=== PATIENT | female | born 1955 | race Caucasian/White ===

== ENCOUNTER 2017-06-04 14:52 | Inpatient (IN) ==
[2017-06-04] MEDS ORDERED: 0.9 % Sodium Chloride 1,000 ML IVC ONE ×3 (15:44→21:51)
--- NOTE | 2017-06-04 15:46 | Emergency Department Note ---
Disposition Clinical Impression: Acute kidney injury, Severe dehydration Disposition: Admitted As Inpatient Condition: Fair Referrals: NO,PCP [Primary Care Provider] - Forms: ED Satisfaction Letter Time of Disposition: 18:12 General Adult HPI - General Chief complaint: ED Recheck/Abnormal Lab/Rx Stated complaint: Abnormal labs Time Seen by Provider: 06/04/17 15:04 Source: patient, EMS Mode of arrival: EMS Limitations: no limitations Nursing Notes Reviewed: Yes Vital Signs Reviewed: Yes - History of Present Illness HPI Narrative: Patient had recent abdominal surgery. Has a colostomy and an open wound in the lower abdomen. She is at a rehabilitation facility. They have done lab work over the past handful of days and have seen her creatinine elevated significantly. Today it was double what it was last time he checked it. This is reportedly the reason the patient was sent here. Patient herself is not understanding why they sent her here. She complains of difficulty urinating. Pt Subjective Complaint: Patient states she just does not feel well. Onset (ago): day(s) Pain Severity: severe Pain Scale: 9 Quality: sharp Consistency: intermittent Improves with: nothing Worsens with: nothing Associated symptoms: Denies: cough, fever/chills - Related Data Allergies Allergy/AdvReac Type Severity Reaction Status Date / Time No Known Allergies Allergy Verified 06/04/17 16:22 All systems ED: reviewed and negative except as stated. Constitutional: Denies: fever, chills ENT ED: Denies: ear pain, throat pain, congestion Cardiovascular: Denies: chest pain, palpitations Respiratory: Denies: cough, dyspnea Gastrointestinal: Reports: abdominal pain, nausea. Denies: vomiting, diarrhea Genitourinary: Reports: other (Patient states she has not been able to urinate for 2 days) Integumentary: Denies: rash Past Medical History - Past Medical History Attestation: Yes The following information was validated with the patient. Source: patient, old records reviewed, nursing notes reviewed Medical history: Reports: cancer, diabetes, hypertension Psychiatric history: Reports: no psych history - Social History Smoking Status: Former smoker Smokeless Tobacco Status: No Alcohol use: Reports: none Drug use: Reports: none Physical Exam - General Limitations: no limitations General appearance: alert, in no apparent distress - Head Head exam: atraumatic, normocephalic, normal inspection - Eye Eye exam: Present: normal appearance, PERRL, EOMI. Absent: scleral icterus, conjunctival injection - ENT ENT exam: normal exam, normal oropharynx, mucous membranes dry, normal external ear exam - Neck Neck exam: Present: normal inspection, full ROM. Absent: tenderness, meningismus - Chest Chest inspection: Present: normal inspection, symmetric chest wall rise. Absent : tenderness - Respiratory Respiratory exam: Present: normal lung sounds bilaterally. Absent: respiratory distress, wheezes - Cardiovascular Cardiovascular exam: Present: regular rate, normal rhythm, normal heart sounds - Abdominal Exam Abdominal exam: Present: soft, other (Patient has a colostomy in the right lower quadrant and an open wound incision that is packed in the left lower quadrant. She claims of discomfort to palpation to the suprapubic area.) - Extremities Exam Extremities exam: Present: normal inspection. Absent: tenderness - Neurological Exam Neurological exam: Present: alert - Skin Skin exam: Present: warm, dry Course Course Narrative: Patient was sent in because of abnormal lab work. We see that the creatinine has been going up significantly over the past sample of days. With the story of the patient stating that she is not able to pass her urine, I am to put a Malagon in to rule out postobstructive cause of renal failure. We will get a workup going to evaluate other etiologies. We will start some IV fluids. I suspect the patient will need to be admitted but will need the rest of the labs to determine the full extent of her diagnosis. - Reevaluation(s) Reevaluation #1: Patient's labs show significant elevated creatinine but no acidosis and no significant elevation of the potassium. We put a Malagon in her and got no urine output from that. I think this is all dehydration. CAT scan of the abdomen was unremarkable except for expected postoperative changes. I have given her fluids and I think she needs much more fluids. She is to be admitted to the hospital. I have already spoken with the hospitalist who has accepted her for admission. Time: 18:11 - Consultations Consultation #1: Dr. Shaver, hospitalist - I discussed the case with the hospitalist. He is accepted patient for admission. No further orders given. Time: 18:10 Vital Signs Temperature 98.1 F 06/04/17 14:55 Pulse Rate 78 06/04/17 14:55 Respiratory Rate 16 06/04/17 14:55 Blood Pressure 95/55 06/04/17 14:55 O2 Sat by Pulse Oximetry 94 06/04/17 14:55 Temperature 98.1 F 06/04/17 14:55 Pulse Rate 82 06/04/17 17:22 Respiratory Rate 16 06/04/17 17:22 Blood Pressure 111/77 06/04/17 17:22 O2 Sat by Pulse Oximetry 97 06/04/17 17:22 Oxygen Delivery Oxygen Delivery Room Air Medical Decision Making - Lab Data Lab results reviewed: Yes I reviewed the patient's lab results. Result diagrams: 06/04/17 16:07 06/04/17 16:07 Lab Results 06/04/17 06/04/17 06/04/17 Range/Units 16:07 16:07 16:07 WBC 10.1 (4.3-11.1) K/mcL RBC 3.55 L (3.82-4.97) M/mcL Hgb 9.8 L (11.5-15.4) g/dL Hct 29.8 L (35.3-44.9) % MCV 83.9 (83.0-100.0) fL MCH 27.6 L (28.0-33.3) pg MCHC 32.9 (31.6-35.5) g/dL RDW 12.8 (11.5-14.5) % Plt Count 439 H (140-400) K/mcL MPV 10.5 (9.4-12.4) fL Immature Gran % 1.3 (0-4) % Seg Neutrophils % 74.8 % Lymphocytes % 10.7 % Monocytes % 9.1 % Eosinophils % 3.6 % Basophils % 0.5 % Neutrophils # 7.6 (1.6-8.9) K/mcL Lymphocytes # 1.1 (0.6-4.6) K/mcL Monocytes # 0.9 (0.0-1.3) K/mcL Eosinophils # 0.4 (0.0-0.6) K/mcL Basophils # 0.1 (0.0-0.2) K/mcL Sodium 129 L (136-145) mEq/L Potassium 5.5 H (3.5-4.5) mEq/L Chloride 91 L (98-109) mEq/L Carbon Dioxide 23 (19-29) mEq/L BUN 54 H (7-20) mg/dL Creatinine 7.09 H (0.57-1.11) mg/dL Est GFR ( Amer) 7 L (> 60) Est GFR (Non-Af Amer) 6 L (> 60) BUN/Creatinine Ratio 8 (6-26) Glucose 100 H (70-99) mg/dL Calculated Osmolality 283 (280-300) Lactic Acid 1.5 (0.5-2.2) mmol/L Calcium 10.1 (8.6-10.8) mg/dL Total Bilirubin 0.2 (0.2-1.2) mg/dL Direct Bilirubin 0.1 (0.0-0.5) mg/dL Indirect Bilirubin 0.1 (0.0-1.2) mg/dL AST 16 (5-34) Units/L ALT 10 (0-55) Units/L Alkaline Phosphatase 79 (38-126) Units/L Serum Total Protein 8.4 H (6.0-8.3) g/dL Albumin 3.0 L (3.5-5.0) g/dL Globulin 5.4 H (2.4-3.5) g/dL Albumin/Globulin Ratio 0.6 L (1.1-2.2) Urine Color (Yellow) Urine Clarity (Clear) Urine pH (5.0-8.0) pH Units Ur Specific [place] (1.010-1.025) Urine Protein (Neg-Trace) mg/dL Urine Glucose (UA) (Normal) mg/dL Urine Ketones (Negative) mg/dL Urine Blood (Negative) Urine Nitrite (Negative) Urine Bilirubin (Negative) Urine Urobilinogen (Normal) mg/dL Ur Leukocyte Esterase (Negative) Urine Microscopic RBC (0-3) per hpf Urine Microscopic WBC (0-3) per hpf Ur Squamous Epith Cells (None-Few) per lpf Urine Bacteria (None-Few) per hpf Hyaline Casts (None-Few) per lpf Ur Culture Indicated? (NO) 06/04/17 Range/Units 16:45 WBC (4.3-11.1) K/mcL RBC (3.82-4.97) M/mcL Hgb (11.5-15.4) g/dL Hct (35.3-44.9) % MCV (83.0-100.0) fL MCH (28.0-33.3) pg MCHC (31.6-35.5) g/dL RDW (11.5-14.5) % Plt Count (140-400) K/mcL MPV (9.4-12.4) fL Immature Gran % (0-4) % Seg Neutrophils % % Lymphocytes % % Monocytes % % Eosinophils % % Basophils % % Neutrophils # (1.6-8.9) K/mcL Lymphocytes # (0.6-4.6) K/mcL Monocytes # (0.0-1.3) K/mcL Eosinophils # (0.0-0.6) K/mcL Basophils # (0.0-0.2) K/mcL Sodium (136-145) mEq/L Potassium (3.5-4.5) mEq/L Chloride (98-109) mEq/L Carbon Dioxide (19-29) mEq/L BUN (7-20) mg/dL Creatinine (0.57-1.11) mg/dL Est GFR ( Amer) (> 60) Est GFR (Non-Af Amer) (> 60) BUN/Creatinine Ratio (6-26) Glucose (70-99) mg/dL Calculated Osmolality (280-300) Lactic Acid (0.5-2.2) mmol/L Calcium (8.6-10.8) mg/dL Total Bilirubin (0.2-1.2) mg/dL Direct Bilirubin (0.0-0.5) mg/dL Indirect Bilirubin (0.0-1.2) mg/dL AST (5-34) Units/L ALT (0-55) Units/L Alkaline Phosphatase (38-126) Units/L Serum Total Protein (6.0-8.3) g/dL Albumin (3.5-5.0) g/dL Globulin (2.4-3.5) g/dL Albumin/Globulin Ratio (1.1-2.2) Urine Color Dark Yellow (Yellow) Urine Clarity Turbid A (Clear) Urine pH 6.0 (5.0-8.0) pH Units Ur Specific [place] 1.029 H (1.010-1.025) Urine Protein >=300 H (Neg-Trace) mg/dL Urine Glucose (UA) Normal (Normal) mg/dL Urine Ketones Trace H (Negative) mg/dL Urine Blood Moderate H (Negative) Urine Nitrite Negative (Negative) Urine Bilirubin Small H (Negative) Urine Urobilinogen Normal (Normal) mg/dL Ur Leukocyte Esterase Large H (Negative) Urine Microscopic RBC 15-30 H (0-3) per hpf Urine Microscopic WBC TNTC H (0-3) per hpf Ur Squamous Epith Cells Many H (None-Few) per lpf Urine Bacteria Many H (None-Few) per hpf Hyaline Casts None Seen (None-Few) per lpf Ur Culture Indicated? YES A (NO) - Radiology Data Radiology results reviewed: Yes I reviewed the patient's radiology results. - EKG Data EKG #1 EKG attestation: Yes I reviewed and interpreted this EKG. EKG shows normal: sinus rhythm, axis, intervals, QRS complexes, ST-T waves Rate: normal Interpretation: no acute changes
[2017-06-04 16:20] LABS: Basophils # 0.1 K/mcL (0.0-0.2); Basophils % 0.5 %; Eosinophils # 0.4 K/mcL (0.0-0.6); Eosinophils % 3.6 %; Hematocrit 29.8 % (35.3-44.9); Hemoglobin 9.8 g/dL (11.5-15.4); Immature Granulocytes % 1.3 % (0-4); Lymphocytes # 1.1 K/mcL (0.6-4.6); Lymphocytes % 10.7 %; Mean Corpuscular HGB Conc 32.9 g/dL (31.6-35.5); Mean Corpuscular Hemoglobin 27.6 pg (28.0-33.3); Mean Corpuscular Volume 83.9 fL (83.0-100.0); Mean Platelet Volume 10.5 fL (9.4-12.4); Monocytes # 0.9 K/mcL (0.0-1.3); Monocytes % 9.1 %; Neutrophils # 7.6 K/mcL (1.6-8.9); Platelet Count 439 K/mcL (140-400); Red Blood Count 3.55 M/mcL (3.82-4.97); Red Cell Distribution Width 12.8 % (11.5-14.5); Segmented Neutrophils % 74.8 %
[2017-06-04 16:33] LABS: Albumin/Globulin Ratio 0.6 (1.1-2.2); Bilirubin,Direct 0.1 mg/dL (0.0-0.5); Bilirubin,Indirect 0.1 mg/dL (0.0-1.2); Bilirubin,Total 0.2 mg/dL (0.2-1.2); Calcium 10.1 mg/dL (8.6-10.8); Globulin 5.4 g/dL (2.4-3.5); Potassium 5.5 mEq/L (3.5-4.5); Total Protein 8.4 g/dL (6.0-8.3)
[2017-06-04 17:04] LABS: Bilirubin,Urine Small (Negative); Blood,Urine Moderate (Negative); Clarity,Urine Turbid (Clear); Color,Urine Dark Yellow (Yellow); Glucose,Urine (UA) Normal (Normal); Ketones,Urine Trace mg/dL (Negative); Leukocyte Esterase,Urine Large (Negative); Nitrite,Urine Negative (Negative); Protein,Urine >=300 mg/dL (Neg-Trace); Specific Gravity,Urine 1.029 (1.010-1.025); Urobilinogen,Urine Normal (Normal)
[2017-06-04 17:13] LABS: Squamous Epithelial Cell,Urine Many per lpf (None-Few); WBC,Urine TNTC per hpf (0-3)
[2017-06-04 17:15] LABS: Bacteria,Urine Many per hpf (None-Few); Hyaline Casts,Urine None Seen per lpf (None-Few); RBC,Urine 15-30 per hpf (0-3)
[2017-06-04] MEDS ORDERED: 0.9 % Sodium Chloride 1,000 ML ONE (20:17)
[2017-06-04] MEDS ORDERED: Naloxone 0.4 MG/ML INJ IVP PRN (20:41)
[2017-06-04] MEDS ORDERED: Ondansetron 4 MG/2 ML VIAL IVP PRN (20:41)
--- NOTE | 2017-06-04 21:14 | Internal Med History&Physical ---
<Ramin Gutiérrez Aneesh - Last Filed: 06/04/17 22:08> Date of Encounter: 06/04/17 Time of Encounter: 21:12 Assessment and Plan (1) Acute kidney injury Current visit: Yes Status: Acute Patient presented with an elevated creatinine. Measurements yesterday morning reveal a creatinine of 3.63, creatinine was 7.09 on presentation today. Patient is having minimal urine output with the patient reporting an area and while here the patient has had approximately 10 mL per hour of urine output. Most likely cause is extreme hypovolemia in the setting of poor by mouth intake and insensible losses related to an open surgical wound however intrinsic renal disease cannot be excluded as the patient has protein and blood in her urine. CT scan of the abdomen and pelvis showed no signs of obstruction, hydroureter, or hydronephrosis. We will check CK, hepatitis, urine microalbumin, urine osmolality, urine sodium, urine creatinine. We will aggressively fluid hydrate the patient. We will hold home medications including glyburide, hydrochlorothiazide, lisinopril, metformin. We will consult nephrology. (2) Urinary tract infection Current visit: Yes Status: Acute UA shows evidence of urinary tract infection with positive nitrites, leukocyte esterase, many bacteria, and too numerous to count white blood cells. Patient denies urinary symptoms other than decreased urine output however given the patient's acute kidney injury I do think it is appropriate to treat in this situation so we will start Rocephin daily. Urine culture has been sent. Qualifiers: Urinary tract infection type: acute cystitis Hematuria presence: with hematuria Qualified Code(s): N30.01 - Acute cystitis with hematuria (3) Wound dehiscence Current visit: Yes Status: Acute Patient had colorectal surgery resection performed at [facility] on 05/03/2017. Review of records revealed that patient had postsurgical wound dehiscence and was then treated with a wound VAC. Open surgical wound remains present. No evidence of infection. We will apply sterile dressings to wound and consult wound care. (4) Colorectal cancer Current visit: Yes Status: Acute Patient reports history of colorectal cancer for which she said she is not undergoing treatment and that she has been told she has been cancer free. (5) Hypertension Current visit: Yes Status: Acute Patient is mildly hypertensive on presentation. We will hold antihypertensive medications. Qualifiers: Hypertension type: essential hypertension Qualified Code(s): I10 - Essential (primary) hypertension (6) Type 2 diabetes mellitus Current visit: Yes Status: Acute Glucose 100 on presentation. Given this patient is nothing by mouth we will hold off on anti-diabetic medications at this time. Continue to monitor blood sugars. Qualifiers: Diabetes mellitus complication status: without complication Diabetes mellitus technician terminal and repeater insulin use: without technician terminal and repeater use Qualified Code(s): E11.9 - Type 2 diabetes mellitus without complications (7) Hypothyroidism Current visit: Yes Status: Acute Continue Synthroid. Qualifiers: Hypothyroidism type: unspecified Qualified Code(s): E03.9 - Hypothyroidism , unspecified (8) DVT prophylaxis Current visit: Yes Status: Acute EPCDs Internal Medicine - H&P: HPI Chief complaint: Abnormal Labs Admitted From: Emergency Dept Plans for Post Hospital Care: Transfer Care Home Facility History of present illness: Ms. Tinoco is a 61 year old female with history of recent colon cancer resection, diabetes, hypertension presents with abnormal labs. Patient states that she had her labs drawn at the residential and then was told that she needed to come to the hospital because her kidney function was off. At this time the patient herself has no complaints. She states she has not been eating well and has not drank much in the last several days. She reports minimal urine output and has not urinated in the last 2 days. She denies fever, chills , chest pain, shortness of breath, lower shortness swelling. She does report abdominal pain at the site of her surgery. She denies nausea, vomiting, diarrhea Past Med Surg Social Fam HX - Past Medical History Medical history: cancer, diabetes, hypertension Psychiatric history: no psych history - Past Surgical History Surgical History: cancer surgery (Colon cancer resection) - Social History Smoking Status: Former smoker Smokeless Tobacco Status: No Alcohol use: none Drug use: none - Additional Family History Additional family history: Patient reports that she does not know her family medical history. Internal Medicine - H&P: Meds Allergies No Known Allergies Allergy (Verified 06/04/17 16:22) All Systems PM: A 10-system review of systems was performed and is negative for pertinent findings except as documented above in the HPI. - Constitutional Constitutional: no chills, no fever(s) - EENT Eyes: no blurry vision, no change in vision Nose, mouth and throat: no sinus pain, no sinus pressure, no sore throat - Cardiovascular Cardiovascular ROS IM: no chest pain, no dyspnea, no lightheadedness, no palpitations - Respiratory Respiratory: no cough, no dyspnea, no wheezing, no chest congestion, no excessive phlegm production, no change in phlegm color - Gastrointestinal Gastrointestinal: abdominal pain, no diarrhea, no hematemesis, no hematochezia, no nausea, no vomiting - Genitourinary Genitourinary: no dysuria, no urinary frequency, no urinary hesitancy Additional comments: Anuria - Musculoskeletal Musculoskeletal ROS IM: no numbness, no tingling - Neurological Neurological ROS: no confusion, no numbness, no tingling - Psychiatric Psychiatric: no anxiety, no depression - Endocrine Endocrine IM: no polydipsia, no polyuria - Hematologic/Lymphatic Hematologic/Lymphatic: no easy bleeding, no easy bruising - Constitutional Vitals: Temp Pulse Resp BP Pulse Ox 98.1 F 74 18 83/40 97 06/04/17 14:55 06/04/17 18:37 06/04/17 20:22 06/04/17 20:22 06/04/17 18:37 General appearance: Present: A&O X 3, no acute distress, answers questions appropriately - Head Head exam: Present: atraumatic, normal inspection, normocephalic - Eye Eye exam: Present: EOMI, PERRL - ENT ENT exam: Present: mucous membranes dry - Neck Neck exam general surgery: Present: full ROM. Absent: nuchal rigidity - Respiratory Respiratory exam: Present: CTAB. Absent: rales, rhonchi, wheezes - Cardiovascular Cardiovascular exam: Present: RRR. Absent: gallop, rubs, systolic murmur - GI/Abdominal GI/Abdominal exam: Present: normal bowel sounds, soft, tenderness (Diffuse). Absent: distended, no peritoneal signs Additional comments: Patient has a large open surgical wound with Kerlix packing present. Granulation tissue present, no bleeding or pustular drainage noted. Ostomy is present with light brown stool noted in the ostomy bag. - Extremities Exam Extremities exam: Present: warm. Absent: pedal edema, tenderness - Neurological Exam Neurological exam: Present: alert, CN II-XII intact, oriented X3, no focal deficits - Psychiatric Psychiatric exam: Present: flat affect - Skin Skin exam: Present: dry, intact, warm Internal Med - H&P Results - Labs CBC & Chem 7: 06/04/17 16:07 06/04/17 21:07 <Annamarie Curiel - Last Filed: 06/05/17 06:03> Date of Encounter: 06/05/17 Internal Medicine - H&P: HPI History of present illness: Ms. Tinoco is a 61 year old female All Systems PM: A 10-system review of systems was performed and is negative for pertinent findings except as documented above in the HPI. - Constitutional Vitals: Temp Pulse Resp BP Pulse Ox 98.1 F 78 15 73/46 96 06/05/17 03:47 06/05/17 03:47 06/05/17 03:47 06/05/17 03:47 06/05/17 03:47 Internal Med - H&P Results - Labs CBC & Chem 7: 06/05/17 05:48 06/05/17 01:01 Labs: Short CBC 06/05/17 06/05/17 Range/Units 01:01 05:48 WBC 7.6 6.6 (4.3-11.1) K/mcL Hgb 7.8 L D 8.0 L (11.5-15.4) g/dL Hct 23.6 L 24.9 L (35.3-44.9) % Plt Count 303 327 (140-400) K/mcL Neutrophils # 5.2 4.9 (1.6-8.9) K/mcL BMP 06/04/17 06/05/17 21:07 01:01 Sodium 132 L 133 L Potassium 4.5 D 4.7 H Chloride 94 L 102 Carbon Dioxide 23 24 BUN 54 H 53 H Creatinine 6.66 H 5.58 H Glucose 86 61 L Calcium 9.4 8.1 L - ABG Interpretation ABG results: 06/04/17 21:07 VBG pH 7.31 L VBG pCO2 54 H VBG pO2 24 L VBG HCO3 27.2 H - Attending Attestation I examined this patient and my medical decision-making was reviewed with the Resident Physician. I agree with the documented findings, disposition and treatment plan as described .
[2017-06-04 21:16] LABS: VBG HCO3 27.2 mEq/L (21-27); VBG PH 7.31 pH Units (7.32-7.42)
[2017-06-04 21:30] LABS: Calcium 9.4 mg/dL (8.6-10.8); Potassium 4.5 mEq/L (3.5-4.5)
[2017-06-04 21:31] LABS: Magnesium 1.6 mg/dL (1.6-2.6)
[2017-06-04 22:03] LABS: Uric Acid 10.9 mg/dL (2.6-6.0)
[2017-06-04 22:05] LABS: Hepatitis B Surface Antigen Nonreactive (Nonreactive)
[2017-06-04] MEDS: *HR* HYDROmorphone (PF) 1 MG/ML SYRINGE IVP PRN (22:14)
[2017-06-05] MEDS: 0.9 % Sodium Chloride 1,000 ML IVC SCH ×5 (01:15→22:40)
[2017-06-05 01:23] LABS: Basophils % 0.4 %; Eosinophils # 0.3 K/mcL (0.0-0.6); Eosinophils % 4.5 %; Hematocrit 23.6 % (35.3-44.9); Hemoglobin 7.8 g/dL (11.5-15.4); Immature Granulocytes % 1.3 % (0-4); Mean Corpuscular HGB Conc 33.1 g/dL (31.6-35.5); Mean Corpuscular Hemoglobin 28.2 pg (28.0-33.3); Mean Corpuscular Volume 85.2 fL (83.0-100.0); Mean Platelet Volume 10.2 fL (9.4-12.4); Monocytes # 0.9 K/mcL (0.0-1.3); Monocytes % 12.3 %; Neutrophils # 5.2 K/mcL (1.6-8.9); Platelet Count 303 K/mcL (140-400); Red Blood Count 2.77 M/mcL (3.82-4.97); Red Cell Distribution Width 12.8 % (11.5-14.5); Segmented Neutrophils % 68.5 %
[2017-06-05 01:35] LABS: Calcium 8.1 mg/dL (8.6-10.8); Phosphorous 6.2 mg/dL (2.3-4.7); Potassium 4.7 mEq/L (3.5-4.5)
[2017-06-05] MEDS ORDERED: *HR* Dextrose 50 % in Water (Syg) 50 ML SYRINGE IVP PRN (04:16)
[2017-06-05] MEDS ORDERED: Dextrose Gel 15 GM PO PRN ×2 (04:16)
[2017-06-05] MEDS ORDERED: D5% in Water 1,000 ML IVC PRN (04:16)
[2017-06-05] MEDS ORDERED: 0.9 % Sodium Chloride 1,000 ML IVC ONE ×2 (04:17→13:23)
[2017-06-05 05:57] LABS: Basophils % 0.3 %; Eosinophils # 0.3 K/mcL (0.0-0.6); Eosinophils % 4.5 %; Hematocrit 24.9 % (35.3-44.9); Immature Granulocytes % 1.4 % (0-4); Immature Platelets 1.6 % (1.1-6.1); Lymphocytes # 0.6 K/mcL (0.6-4.6); Lymphocytes % 9.4 %; Mean Corpuscular HGB Conc 32.1 g/dL (31.6-35.5); Mean Corpuscular Hemoglobin 27.4 pg (28.0-33.3); Mean Corpuscular Volume 85.3 fL (83.0-100.0); Mean Platelet Volume 9.5 fL (9.4-12.4); Monocytes # 0.7 K/mcL (0.0-1.3); Monocytes % 10.9 %; Neutrophils # 4.9 K/mcL (1.6-8.9); Platelet Count 327 K/mcL (140-400); Red Blood Count 2.92 M/mcL (3.82-4.97); Red Cell Distribution Width 12.9 % (11.5-14.5); Segmented Neutrophils % 73.5 %
[2017-06-05 06:12] LABS: Calcium 8.4 mg/dL (8.6-10.8); Potassium 4.5 mEq/L (3.5-4.5)
[2017-06-05 06:13] LABS: Creatinine,Urine 65 mg/dL; Microalbum/Creatinine Ratio,Ur 26 (0-30); Microalbumin,Urine 17 mg/L
--- NOTE | 2017-06-05 07:57 | Internal Med Progress Note ---
Date of Encounter: 06/05/17 Time of Encounter: 07:52 - Assessment and plan (1) Acute kidney injury Current Visit: Yes Status: Acute Assessment and plan: Suspect prerenal due to poor by mouth intake and volume loss due to ileostomy. Aggressive fluid resuscitation and electrolyte monitoring. Nephrology consultation in place. (2) Severe dehydration Current Visit: Yes Status: Acute Assessment and plan: Hydrated aggressively until creatinine returns to normal as well as electrolytes need to be watched on daily basis. (3) Wound dehiscence Current Visit: Yes Status: Acute Assessment and plan: Wound care consult and daily clinical assessment (4) Colorectal cancer Current Visit: Yes Status: Acute Assessment and plan: Patient has post colorectal cancer surgery complication and we see if he can manage it medically here in case of surgical intervention the main question would be if she needs to be transferred to [place] can be taken care by the team of surgeons at [place] (5) Hypertension Current Visit: Yes Status: Acute Assessment and plan: Lisinopril on hold watch blood pressure closely if appear necessary Norvasc or hydralazine can be started for short-term monitor daily Qualifiers: Hypertension type: essential hypertension Qualified Code(s): I10 - Essential (primary) hypertension (6) Type 2 diabetes mellitus Current Visit: Yes Status: Acute Assessment and plan: Accu-Chek 4 times a day with sliding scale coverage Qualifiers: Diabetes mellitus complication status: without complication Diabetes mellitus muck operator insulin use: without mcfp use Qualified Code(s): E11.9 - Type 2 diabetes mellitus without complications (7) Hypothyroidism Current Visit: Yes Status: Acute Assessment and plan: Continue home medication and clinically monitor daily Qualifiers: Hypothyroidism type: unspecified Qualified Code(s): E03.9 - Hypothyroidism , unspecified (8) DVT prophylaxis Current Visit: Yes Status: Acute Assessment and plan: Plan SCDs and heparin (9) Postoperative anemia due to acute blood loss Current Visit: Yes Status: Acute Assessment and plan: Check iron profile monitor hemoglobin daily supplement iron if necessary - Subjective Interval history: Ms. Mary Tinoco is a 61-year-old female who had colorectal surgery for colon cancer and has an ileostomy at [facility]. Postoperative wound has not healed well and beside wound dehiscence there is concern if she has wound infection. The reason she presented because of poor appetite and nausea and on left check creatinine was noted to be around 6.66. More than 4 L fluid given that help in bringing creatinine down to 4 right away. UA was positive for leukocyte and has been sent for culture and in the mean time she has been started on antibiotics including Rocephin which would not be my first trial but since it has already been started and the creatinine is actually improving and getting weak and continue with that. Nephrotoxic medicines have been removed. Nephrology is consulted. I suspect significant water loss due to ileostomy and therefore while hydrating her and will keep an eye on her electrolytes and supplement those if necessary. Admitting team has also requested wound care consult. I have ordered follow-up CBC CMP and electrolytes mainly magnesium and phosphate. I will hydrate her aggressively. Her hemoglobin has dropped to 8 which I suspect is due to hemodilution but it also appears that she is quite anemic. I will check her iron profile to see if she needs any supplementation. - Constitutional Vitals: Temp Pulse Resp BP Pulse Ox 97.9 F 70 16 107/52 96 06/05/17 07:42 06/05/17 07:42 06/05/17 07:42 06/05/17 07:42 06/05/17 07:42 General appearance: Present: A&O X 3, no acute distress, answers questions appropriately - Head Head exam: Present: atraumatic, normocephalic - Eye Eye exam: Present: PERRL, conjuntiva pink, sclera anicteric Pupils: Present: PERRL - Neck Neck exam general surgery: Present: supple, trachea midline. Absent: lymphadenopathy - Respiratory Respiratory exam: Present: CTAB. Absent: accessory muscle use, rales, rhonchi, wheezes - Cardiovascular Cardiovascular exam: Present: RRR, +S1, +S2. Absent: diastolic murmur, gallop, rubs, systolic murmur - GI/Abdominal GI/Abdominal exam: Present: normal bowel sounds, soft, no peritoneal signs. Absent: distended, tenderness - Extremities Exam Extremities exam: Present: warm, radial pulses palpable and symetrical. Absent : calf tenderness, cyanotic, pedal edema - Neurological Exam Neurological exam: Present: CN II-XII intact, oriented X3, no focal deficits. Absent: pronater drift, facial droop, speech deficit - Skin Skin exam: Present: dry, intact Internal Medicine: Result - Labs CBC & Chem 7: 06/05/17 10:13 06/05/17 05:48 Labs: Short CBC 06/05/17 06/05/17 Range/Units 01:01 05:48 WBC 7.6 6.6 (4.3-11.1) K/mcL Hgb 7.8 L D 8.0 L (11.5-15.4) g/dL Hct 23.6 L 24.9 L (35.3-44.9) % Plt Count 303 327 (140-400) K/mcL Neutrophils # 5.2 4.9 (1.6-8.9) K/mcL BMP 06/04/17 06/05/17 06/05/17 21:07 01:01 05:48 Sodium 132 L 133 L 133 L Potassium 4.5 D 4.7 H 4.5 Chloride 94 L 102 102 Carbon Dioxide 23 24 22 BUN 54 H 53 H 46 H Creatinine 6.66 H 5.58 H 4.01 H Glucose 86 61 L 77 Calcium 9.4 8.1 L 8.4 L Consult Discharge Plan - Plan Referrals: NO,PCP [Primary Care Provider] -
[2017-06-05 10:19] LABS: Hematocrit 24.4 % (35.3-44.9); Hemoglobin 7.9 g/dL (11.5-15.4)
[2017-06-05] MEDS ORDERED: 0.9 % Sodium Chloride 500 ML IVC ONE (11:21)
--- NOTE | 2017-06-05 12:32 | Nephrology Consult Note ---
Date of Encounter: 06/05/17 Time of Encounter: 10:15 Assessment and Plan (1) Acute kidney injury Current Visit: Yes Status: Acute Nonoliguric KEAGAN from volume depletion while on an JEANA inhibitor and diuretic plus metformin. Suspect this to largely be pre-renal as she is quickly showing signs of improvement with the IVF that she has been receiving. Hold nephrotoxins for now. Dose Rx by CrCl using eGFR as a surrogate. Follow a renal protective strategy. No need for initiating HD, and I suspect she will continue to show signs of improvement. Thank you for consulting the [facility]. My colleague Dr. Kamara will be on-call tomorrow. (2) Hypertension Current Visit: Yes Status: Acute Will have to hold Lisinopril and HCTZ d/t the severe dehydration/volume depletion. Qualifiers: Hypertension type: essential hypertension Qualified Code(s): I10 - Essential (primary) hypertension (3) Severe dehydration Current Visit: Yes Status: Acute See above (4) Type 2 diabetes mellitus Current Visit: Yes Status: Acute Hold metformin d/t the KEAGAN, but if SCr improves at some point, may be reasonable to resume as an outpt (see the 2016 FDA GFR guidelines). Qualifiers: Diabetes mellitus complication status: without complication Diabetes mellitus shelter insulin use: without intermediate school teacher use Qualified Code(s): E11.9 - Type 2 diabetes mellitus without complications (5) Urinary tract infection Current Visit: Yes Status: Acute Abx for treatment. Qualifiers: Urinary tract infection type: acute cystitis Hematuria presence: with hematuria Qualified Code(s): N30.01 - Acute cystitis with hematuria (6) Colorectal cancer Current Visit: Yes Status: Acute As per primary. The ostomy care is important and there was some skin breakdown noted. If she were to experience increased number of bag exchanges from high ostomy outpt, then be sure to make intake to output. History of Present Illness - Reason for Consult Consult date: 06/05/17 Acute Kidney Injury Requesting physician: Pily Aldridge - Chief Complaint KEAGAN - History of Present Illness Mary Tinoco is a very pleasant 61 y/o WF with a pmh of colon CA s/p colon surgery with ileostomy at [facility] less than 1 month ago, longstanding T2DM, HTN, obesity and et al who presented with findings of abnormal labs from her local ECF. Nephrology was consulted when she was found to have very elevated SCr. She was taking lisinopril, metformin and HCTZ but also having increase ostomy output and very little oral intake. The pt affirmed that she has lost her appetite and was not drinking or eating. She said that she 's never seen another cutlet maker pork to her knowledge. She denied XS use of NSAIDs in the past and though she is not completely clear of all her meds at the ECF, she thinks she was only getting Tylenol as neeed for pain but no NSAIDs. She did not affirm N/V/F/C or dysuria. She had a CT performed without contrast in the ER. She voiced having no Family History of ESRD or advanced CKD to her knowledge. Past Med Surg Social Fam HX - Past Medical History Medical history: cancer, diabetes, hypertension, thyroid disease Psychiatric history: no psych history - Past Surgical History Surgical History: cancer surgery, hysterectomy - Social History Smoking Status: Former smoker Smokeless Tobacco Status: No Alcohol use: none Drug use: none - Family History Mother Family Member Ethnicity: Non- Living Status: Age at : 52 Hx Family Cardiac Disorders: Yes (MT) Medications and Allergies Acetaminophen [Tylenol] 325 mg PO Q6HR PRN 06/04/17 [History] Aspirin 81 mg PO DAILY 06/05/17 [History] Enoxaparin [Lovenox] 40 mg SQ Q12HR 06/05/17 [History] Glimepiride [Amaryl] 1 mg PO DAILY 06/05/17 [History] Levothyroxine [Synthroid] 100 mcg PO 0630 06/05/17 [History] Lisinopril [Zestril] 10 mg PO DAILY 06/05/17 [History] Metformin HCl [Glucophage] 1,000 mg PO DAILY 06/05/17 [History] Oxycodone HCl/Acetaminophen [Percocet 5-325 mg Tablet] 1 each PO Q6H PRN [History] Tramadol HCl [Ultram] 50 mg PO Q6H PRN 06/05/17 [History] hydroCHLOROthiazide [Hydrochlorothiazide] 25 mg PO DAILY 06/05/17 [History] Allergies No Known Allergies Allergy (Verified 06/04/17 16:22) Review of Systems All Systems: reviewed and no additional remarkable complaints except as stated Exam - Vital Signs Vital signs: Initial Vital Signs Temp Pulse Resp BP Pulse Ox 98.1 F 78 16 95/55 94 06/04/17 14:55 06/04/17 14:55 06/04/17 14:55 06/04/17 14:55 06/04/17 14:55 Vital Signs - Last 8 Hours Temp Pulse Resp BP Pulse Ox 06/05/17 11:36 67 14 79/40 97 06/05/17 11:21 98.6 F 65 14 79/40 97 06/05/17 11:00 67 14 79/40 97 06/05/17 10:42 71 85/51 95 06/05/17 10:30 66 75/28 97 06/05/17 09:40 74 16 104/60 97 06/05/17 07:42 97.9 F 70 16 107/52 96 06/05/17 07:39 67 107/52 06/05/17 04:45 77 Intake and Output 06/04/17 06/05/17 06/05/17 23:59 07:59 15:59 Intake Total 1100 / 2100 1999 / 1999 1008 / 1008 Output Total 1700 / 1700 Balance 1100 / 2100 300 / 300 1008 / 1008 Intake: IV Fluids 1100 / 1100 1999 / 1999 948 / 948 0.9 % Sodium Chloride 1, 1000 / 1000 1999 / 1999 948 / 948 000 ML @ 125 mls/hr IVC . Q8H [facility] Rx#:[id number] Rocephin 1,000 MG In 100 / 100 Dextrose 5% (Minibag+) 100 ML 100 ML @ 200 mls/ hr IVPB Q24H [facility] Rx#: [id number] Oral 60 / 60 Output: Urine 800 / 800 Urethral (Malagon) 800 / 800 Stool 250 / 250 Catheter 650 / 650 Other: Meal Breakfast Percent of Meal Consumed 25% Stool Consistency liquid Stool Characteristics Normal for Patient Stool Color Brown Blood Tinged Weight 94.6 kg Blood Glucose* 84 141 Patient Weight 06/05/17 23:59 Weight 94.6 kg - General Appearance General appearance: well-developed, appears started age, obese, chronically ill , fatigue, frail EENT: ATNC, PERRL, mucous membranes dry Neck: supple Respiratory: clear Cardiology: no edema, regular rate, regular rhythm, normal S1, normal S2 Gastrointestinal: normoactive bowel sounds, no tenderness, no guarding Additional Comments: ostomy bag noted Integumentary: warm and dry, skin tear (near the ostomy site) Neurologic: no focal deficit, no asterixis, alert and oriented x3 Musculoskeletal: no erythema, no cyanosis Psychiatric: depressed, cooperative Results - Lab Results 06/06/17 04:00 06/06/17 05:47 Most recent lab results Calcium 8.4 mg/dL (8.6-10.8) L 06/05/17 05:48 Phosphorus 6.2 mg/dL (2.3-4.7) H 06/05/17 01:01 Magnesium 1.6 mg/dL (1.6-2.6) 06/04/17 21:07 Urine Creatinine 66 mg/dL 06/05/17 05:32 Urine Sodium 64.0 mEq/L 06/05/17 05:32 I reviewed the above auto-generated data wooten and also reviewed labs, meds, vitals, imaging and progress notes. Consult Discharge Plan - Plan Referrals: NO,PCP [Primary Care Provider] -
[2017-06-05] MEDS: *HR* HYDROmorphone (PF) 1 MG/ML SYRINGE IVP PRN (17:57)
[2017-06-06] MEDS: 0.9 % Sodium Chloride 1,000 ML IVC SCH ×3 (04:04→14:32)
[2017-06-06 04:48] LABS: Basophils % 0.2 %; Eosinophils # 0.2 K/mcL (0.0-0.6); Eosinophils % 5.4 %; Hematocrit 24.9 % (35.3-44.9); Hemoglobin 7.9 g/dL (11.5-15.4); Immature Granulocytes % 1.3 % (0-4); Lymphocytes # 0.7 K/mcL (0.6-4.6); Lymphocytes % 16.3 %; Mean Corpuscular HGB Conc 31.7 g/dL (31.6-35.5); Mean Corpuscular Hemoglobin 27.1 pg (28.0-33.3); Mean Corpuscular Volume 85.6 fL (83.0-100.0); Mean Platelet Volume 10.3 fL (9.4-12.4); Monocytes # 0.6 K/mcL (0.0-1.3); Monocytes % 14.1 %; Neutrophils # 2.8 K/mcL (1.6-8.9); Platelet Count 292 K/mcL (140-400); Red Blood Count 2.91 M/mcL (3.82-4.97); Red Cell Distribution Width 12.7 % (11.5-14.5); Segmented Neutrophils % 62.7 %
[2017-06-06 07:04] LABS: % Iron Saturation 9 % (15-50); Alanine Aminotransferase 6 Units/L (0-55); Albumin 2.3 g/dL (3.5-5.0); Albumin/Globulin Ratio 0.6 (1.1-2.2); Alkaline Phosphatase 62 Units/L (38-126); Aspartate Amino Transferase 10 Units/L (5-34); BUN/Creatinine Ratio 19 (6-26); Blood Urea Nitrogen 20 mg/dL (7-20); Calcium 8.7 mg/dL (8.6-10.8); Carbon Dioxide 23 mEq/L (19-29); Chloride 109 mEq/L (98-109); Globulin 4.1 g/dL (2.4-3.5); Glucose 131 mg/dL (70-99); Iron 22 mcg/dL (50-170); Magnesium 1.2 mg/dL (1.6-2.6); Osmolality,Calculated 292 (280-300); Phosphorous 2.2 mg/dL (2.3-4.7); Potassium 4.3 mEq/L (3.5-4.5); Sodium 139 mEq/L (136-145); Total Protein 6.4 g/dL (6.0-8.3); Transferrin 175 mg/dL (180-382); eGFR For African Americans > 60 (> 60); eGFR For Non-African Americans 52 (> 60)
[2017-06-06 07:12] LABS: Bilirubin,Total < 0.1 mg/dL (0.2-1.2)
[2017-06-06] MEDS ORDERED: Iron Dextran Complex 200 MG in 0.9 % Sodium Chloride 500 ML IVPB ONE (07:45)
[2017-06-06] MEDS ORDERED: Sodium Phosphate 30 MMOL in D5% in Water 100 ML IVPB ONE (07:45)
[2017-06-06] MEDS: *HR* HYDROmorphone (PF) 1 MG/ML SYRINGE IVP PRN ×2 (07:51→20:33)
[2017-06-06] MEDS: Magnesium Sulfate 2 GM in D5% in Water 100 ML IVPB SCH ×2 (09:46→10:58)
[2017-06-06 09:56] LABS: Hepatitis A Antibody IgM Nonreactive (Nonreactive); Hepatitis B Core IgM Nonreactive (Nonreactive); Hepatitis C Virus Antibody Nonreactive (Nonreactive)
--- NOTE | 2017-06-06 12:06 | Electrocardiograph Report ---
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
[2017-06-06] MEDS: Insulin LISPRO 300 UNITS/3 ML VIAL SQ SCH ×3 (12:49→20:34)
--- NOTE | 2017-06-06 17:37 | Internal Med Progress Note ---
Date of Encounter: 06/06/17 Time of Encounter: 17:35 - Assessment and plan (1) Acute kidney injury Current Visit: Yes Status: Acute (2) Severe dehydration Current Visit: Yes Status: Acute (3) Wound dehiscence Current Visit: Yes Status: Acute (4) Colorectal cancer Current Visit: Yes Status: Acute (5) Hypertension Current Visit: Yes Status: Acute Qualifiers: Hypertension type: essential hypertension Qualified Code(s): I10 - Essential (primary) hypertension (6) Type 2 diabetes mellitus Current Visit: Yes Status: Acute Qualifiers: Diabetes mellitus complication status: without complication Diabetes mellitus [facility] insulin use: without terminal computer operator use Qualified Code(s): E11.9 - Type 2 diabetes mellitus without complications (7) Hypothyroidism Current Visit: Yes Status: Acute Qualifiers: Hypothyroidism type: unspecified Qualified Code(s): E03.9 - Hypothyroidism , unspecified (8) DVT prophylaxis Current Visit: Yes Status: Acute (9) Postoperative anemia due to acute blood loss Current Visit: Yes Status: Acute - Subjective Interval history: Ms. Mary Tinoco is a 61-year-old female who had colorectal surgery for colon cancer and has an ileostomy at [facility]. Postoperative wound has not healed well and beside wound dehiscence there is concern if she has wound infection. The reason she presented because of poor appetite and nausea and on left check creatinine was noted to be around 6.66. More than 4 L fluid given that help in bringing creatinine down to 4 right away. UA was positive for leukocyte and has been sent for culture and in the mean time she has been started on antibiotics including Rocephin which would not be my first trial but since it has already been started and the creatinine is actually improving and getting weak and continue with that. Nephrotoxic medicines have been removed. Nephrology is consulted. I suspect significant water loss due to ileostomy and therefore while hydrating her and will keep an eye on her electrolytes and supplement those if necessary. Admitting team has also requested wound care consult. I have ordered follow-up CBC CMP and electrolytes mainly magnesium and phosphate. I will hydrate her aggressively. Her hemoglobin has dropped to 8 which I suspect is due to hemodilution but it also appears that she is quite anemic. I will check her iron profile to see if she needs any supplementation. 06/06 as above. Main with acute kidney injury creatinine 6.6 but fairly aggressive fluid resuscitation has normalized renal function. She has ileostomy and I suspect she will likely need aggressive fluid and electrolyte management. Her magnesium today is only 1.2 phosphate is 2.2 and there either and is only 22. We will supplement her with magnesium phosphate and iron and will also order Hemoccult tests. Since her hemoglobin is stable around 8 she may not need transfusion. Gastroenterology [place] of [place] until June 20 therefore outpatient colonoscopy can be arranged as surgical team is available only for emergent cases. His weight discharge tomorrow. Nephrology is on the case. - Constitutional Vitals: Temp Pulse Resp BP Pulse Ox 98.0 F 74 16 110/71 98 06/06/17 15:01 06/06/17 15:01 06/06/17 15:01 06/06/17 15:01 06/06/17 15:01 General appearance: Present: A&O X 3, no acute distress, answers questions appropriately - Head Head exam: Present: atraumatic, normocephalic - Eye Eye exam: Present: PERRL, conjuntiva pink, sclera anicteric Pupils: Present: PERRL - Neck Neck exam general surgery: Present: supple, trachea midline. Absent: lymphadenopathy - Respiratory Respiratory exam: Present: CTAB. Absent: accessory muscle use, rales, rhonchi, wheezes - Cardiovascular Cardiovascular exam: Present: RRR, +S1, +S2. Absent: diastolic murmur, gallop, rubs, systolic murmur - GI/Abdominal GI/Abdominal exam: Present: normal bowel sounds, soft, no peritoneal signs. Absent: distended, tenderness - Extremities Exam Extremities exam: Present: warm, radial pulses palpable and symetrical. Absent : calf tenderness, cyanotic, pedal edema - Neurological Exam Neurological exam: Present: CN II-XII intact, oriented X3, no focal deficits. Absent: pronater drift, facial droop, speech deficit - Skin Skin exam: Present: dry, intact Internal Medicine: Result - Labs CBC & Chem 7: 06/06/17 04:00 06/06/17 05:47 Labs: Short CBC 06/06/17 Range/Units 04:00 WBC 4.5 (4.3-11.1) K/mcL Hgb 7.9 L (11.5-15.4) g/dL Hct 24.9 L (35.3-44.9) % Plt Count 292 (140-400) K/mcL Neutrophils # 2.8 (1.6-8.9) K/mcL BMP 06/06/17 05:47 Sodium 139 Potassium 4.3 Chloride 109 Carbon Dioxide 23 BUN 20 D Creatinine 1.08 D Glucose 131 H Calcium 8.7 Liver Function 06/06/17 Range/Units 05:47 Total Bilirubin < 0.1 L (0.2-1.2) mg/dL AST 10 (5-34) Units/L ALT 6 (0-55) Units/L Alkaline Phosphatase 62 (38-126) Units/L Albumin 2.3 L D (3.5-5.0) g/dL Consult Discharge Plan - Plan Referrals: NO,PCP [Primary Care Provider] -
--- NOTE | 2017-06-06 17:41 | Nephrology Progress Note ---
Date of Encounter: 06/06/17 Time of Encounter: 12:00 - Assessment and Plan (1) Acute kidney injury Current Visit: Yes Status: Acute SCr drastically improved at 1.08, GFR 52 from previous of 4.01, GFR 11 with IVF Baseline SCr unclear, no records at [facility] has been incredible! Continue to avoid nephrotoxins if possible Will sign off, please reconsult prn (2) Postoperative anemia due to acute blood loss Current Visit: Yes Status: Acute Hgb noted at 7.9, management per primary team Iron level low, will need repletion Subjective Interval history: Interim events noted. Pt seen and examined. Objective - Vital Signs Vital signs: Vital Signs Temp Pulse Resp BP Pulse Ox 06/06/17 15:01 98.0 F 74 16 110/71 98 06/06/17 13:15 98.4 F 77 16 98/57 97 06/06/17 11:57 71 06/06/17 11:50 98.1 F 70 17 103/51 98 06/06/17 07:56 68 06/06/17 07:13 98.7 F 75 16 99/57 98 06/06/17 04:05 99 F 72 16 112/69 97 06/05/17 23:59 98.4 F 71 18 98/55 96 06/05/17 23:20 68 06/05/17 20:55 70 06/05/17 20:11 98.0 F 77 16 103/54 99 Intake and Output 06/06/17 06/06/17 06/06/17 07:59 15:59 23:59 Intake Total 1000 / 1000 2208 / 2208 500 / 500 Output Total 450 / 450 2200 / 2200 600 / 600 Balance 550 / 550 8 / 8 -100 / -100 Intake: IV Fluids 1000 / 1000 2208 / 2208 500 / 500 0.9 % Sodium Chloride 1, 1000 / 1000 2000 / 2000 500 / 500 000 ML @ 200 mls/hr IVC . Q5H [facility] Rx#:[id number] Magnesium Sulfate 2 GM In 208 / 208 Dextrose 5% 100 ML @ 96. 296 mls/hr IVPB Q1H [facility] Rx#:[id number] Oral 0 / 0 Output: Urine 0 / 0 Stool 500 / 500 100 / 100 Catheter 450 / 450 1700 / 1700 500 / 500 Other: Stool Consistency soft liquid soft Stool Color Brown Brown Weight 96.7 kg 96.7 kg Blood Glucose* 143 218 138 Patient Weight 06/06/17 23:59 Weight 96.7 kg - Lab 06/06/17 04:00 06/06/17 05:47 Most recent lab results Calcium 8.7 mg/dL (8.6-10.8) 06/06/17 05:47 Phosphorus 2.2 mg/dL (2.3-4.7) L D 06/06/17 05:47 Magnesium 1.2 mg/dL (1.6-2.6) L 06/06/17 05:47 Urine Creatinine 66 mg/dL 06/05/17 05:32 Urine Sodium 64.0 mEq/L 06/05/17 05:32 Consult Discharge Plan - Plan Referrals: NO,PCP [Primary Care Provider] -
[2017-06-06] MEDS ORDERED: SODIUM CHLORIDE 0.9% IVPB ONE (20:00)
[2017-06-06] MEDS ORDERED: IRON DEXTRAN COMPLEX IVPB ONE (20:00)
[2017-06-07] MEDS: *HR* HYDROmorphone (PF) 1 MG/ML SYRINGE IVP PRN ×2 (04:29→21:45)
[2017-06-07 07:34] LABS: Basophils % 0.5 %; Eosinophils # 0.4 K/mcL (0.0-0.6); Eosinophils % 6.4 %; Hematocrit 24.5 % (35.3-44.9); Hemoglobin 8.1 g/dL (11.5-15.4); Immature Granulocytes % 1.4 % (0-4); Lymphocytes # 0.9 K/mcL (0.6-4.6); Lymphocytes % 16.4 %; Mean Corpuscular HGB Conc 33.1 g/dL (31.6-35.5); Mean Corpuscular Hemoglobin 27.9 pg (28.0-33.3); Mean Corpuscular Volume 84.5 fL (83.0-100.0); Mean Platelet Volume 10.3 fL (9.4-12.4); Monocytes # 0.6 K/mcL (0.0-1.3); Monocytes % 11.2 %; Neutrophils # 3.6 K/mcL (1.6-8.9); Platelet Count 284 K/mcL (140-400); Red Cell Distribution Width 12.9 % (11.5-14.5); Segmented Neutrophils % 64.1 %
[2017-06-07 08:00] LABS: Alanine Aminotransferase 7 Units/L (0-55); Albumin 2.3 g/dL (3.5-5.0); Albumin/Globulin Ratio 0.6 (1.1-2.2); Alkaline Phosphatase 57 Units/L (38-126); Aspartate Amino Transferase 9 Units/L (5-34); BUN/Creatinine Ratio 14 (6-26); Bilirubin,Total 0.2 mg/dL (0.2-1.2); Blood Urea Nitrogen 11 mg/dL (7-20); Carbon Dioxide 26 mEq/L (19-29); Chloride 109 mEq/L (98-109); Globulin 4.1 g/dL (2.4-3.5); Glucose 98 mg/dL (70-99); Magnesium 1.2 mg/dL (1.6-2.6); Osmolality,Calculated 289 (280-300); Phosphorous 2.9 mg/dL (2.3-4.7); Potassium 4.1 mEq/L (3.5-4.5); Sodium 140 mEq/L (136-145); Total Protein 6.4 g/dL (6.0-8.3); eGFR For African Americans > 60 (> 60); eGFR For Non-African Americans > 60 (> 60)
[2017-06-07] MEDS: Insulin LISPRO 300 UNITS/3 ML VIAL SQ SCH ×4 (08:24→20:28)
[2017-06-07] MEDS ORDERED: Magnesium Sulfate 2 GM in D5% in Water 100 ML IVPB ONE (13:23)
--- NOTE | 2017-06-07 17:05 | Internal Med Progress Note ---
Date of Encounter: 06/07/17 Time of Encounter: 13:00 - Assessment and plan (1) Acute kidney injury Current Visit: Yes Status: Acute Assessment and plan: Improved with IV hdyration KEAGAN mostly pre renal due to severe hypovolemia with dehdyration, poor PO intake , and high out put through ileosotomy Encourage more PO intake d/c IVF (2) Electrolyte abnormality Current Visit: Yes Status: Acute Assessment and plan: Due to high out put through ileostomy cont close monitoring cont replacing Mg (3) Severe dehydration Current Visit: Yes Status: Acute (4) Wound dehiscence Current Visit: Yes Status: Acute Assessment and plan: Wound care consulted cont local wound care (5) Colorectal cancer Current Visit: Yes Status: Acute Assessment and plan: Need to f/u with colorectal surgeon as an out pt (6) Hypertension Current Visit: Yes Status: Acute Assessment and plan: stable with home meds Qualifiers: Hypertension type: essential hypertension Qualified Code(s): I10 - Essential (primary) hypertension (7) Type 2 diabetes mellitus Current Visit: Yes Status: Acute Assessment and plan: Cont ISS..Will resume home meds Qualifiers: Diabetes mellitus complication status: without complication Diabetes mellitus extermination inspector insulin use: without long-term use Qualified Code(s): E11.9 - Type 2 diabetes mellitus without complications (8) DVT prophylaxis Current Visit: Yes Status: Acute Assessment and plan: Plan SCDs and heparin (9) Physical deconditioning Current Visit: Yes Status: Acute Assessment and plan: PT / OT eval May need to go back to [facility] SW / CM working on it - Subjective Interval history: This is a 61 y/o F with known past medical history of colon cancer for which patient recently had a colorectal surgery with ileostomy at the [facility]. Now she presented to our ER from a longterm with generalized weakness and lethargic. Session also happen to have high output with ileostomy and patient was looking very dehydrated. Apparently patient had severe acute kidney injury due to dehydration which resolved with IV hydration here. Currently patient is alert,awake and oriented to time place person. Patient denied any chest pain or shortness of breath or abdominal pain - Constitutional Vitals: Temp Pulse Resp BP Pulse Ox 98.5 F 77 16 140/65 97 06/07/17 14:54 06/07/17 14:54 06/07/17 14:54 06/07/17 14:54 06/07/17 14:54 General appearance: Present: A&O X 3, no acute distress, answers questions appropriately - Respiratory Respiratory exam: Present: CTAB. Absent: accessory muscle use, rales, rhonchi, wheezes - Cardiovascular Cardiovascular exam: Present: RRR, +S1, +S2. Absent: diastolic murmur, gallop, rubs, systolic murmur - GI/Abdominal GI/Abdominal exam: Present: normal bowel sounds, soft. Absent: guarding, rebound, tenderness Additional comments: Ileosotomy bag +. Clean incision / no foul discharge noticed - Psychiatric Psychiatric exam: Present: normal affect, normal mood Internal Medicine: Result - Labs CBC & Chem 7: 06/07/17 06:38 06/07/17 06:38 Labs: Short CBC 06/07/17 Range/Units 06:38 WBC 5.6 (4.3-11.1) K/mcL Hgb 8.1 L (11.5-15.4) g/dL Hct 24.5 L (35.3-44.9) % Plt Count 284 (140-400) K/mcL Neutrophils # 3.6 (1.6-8.9) K/mcL BMP 06/07/17 06:38 Sodium 140 Potassium 4.1 Chloride 109 Carbon Dioxide 26 BUN 11 Creatinine 0.78 Glucose 98 Calcium 9.0 Liver Function 06/07/17 Range/Units 06:38 Total Bilirubin 0.2 (0.2-1.2) mg/dL AST 9 (5-34) Units/L ALT 7 (0-55) Units/L Alkaline Phosphatase 57 (38-126) Units/L Albumin 2.3 L (3.5-5.0) g/dL Consult Discharge Plan - Plan Referrals: NO,PCP [Primary Care Provider] -
[2017-06-08 04:52] LABS: Basophils % 0.6 %; Eosinophils # 0.5 K/mcL (0.0-0.6); Eosinophils % 8.6 %; Hematocrit 24.2 % (35.3-44.9); Hemoglobin 8.1 g/dL (11.5-15.4); Immature Granulocytes % 1.5 % (0-4); Lymphocytes # 0.8 K/mcL (0.6-4.6); Lymphocytes % 15.4 %; Mean Corpuscular HGB Conc 33.5 g/dL (31.6-35.5); Mean Corpuscular Hemoglobin 28.2 pg (28.0-33.3); Mean Corpuscular Volume 84.3 fL (83.0-100.0); Monocytes # 0.6 K/mcL (0.0-1.3); Monocytes % 10.2 %; Neutrophils # 3.4 K/mcL (1.6-8.9); Platelet Count 320 K/mcL (140-400); Red Blood Count 2.87 M/mcL (3.82-4.97); Segmented Neutrophils % 63.7 %
[2017-06-08 05:04] LABS: Alanine Aminotransferase 8 Units/L (0-55); Albumin 2.5 g/dL (3.5-5.0); Albumin/Globulin Ratio 0.6 (1.1-2.2); Alkaline Phosphatase 59 Units/L (38-126); Aspartate Amino Transferase 9 Units/L (5-34); BUN/Creatinine Ratio 12 (6-26); Blood Urea Nitrogen 9 mg/dL (7-20); Calcium 9.4 mg/dL (8.6-10.8); Carbon Dioxide 27 mEq/L (19-29); Chloride 105 mEq/L (98-109); Globulin 4.2 g/dL (2.4-3.5); Glucose 106 mg/dL (70-99); Magnesium 1.4 mg/dL (1.6-2.6); Osmolality,Calculated 289 (280-300); Phosphorous 3.3 mg/dL (2.3-4.7); Potassium 4.1 mEq/L (3.5-4.5); Sodium 140 mEq/L (136-145); Total Protein 6.7 g/dL (6.0-8.3); eGFR For African Americans > 60 (> 60); eGFR For Non-African Americans > 60 (> 60)
[2017-06-08 05:14] LABS: Bilirubin,Total < 0.1 mg/dL (0.2-1.2)
[2017-06-08] MEDS: Insulin LISPRO 300 UNITS/3 ML VIAL SQ SCH ×4 (07:52→21:49)
[2017-06-08] MEDS: levoFLOXacin 500 MG TABLET PO SCH (13:51)
[2017-06-08] MEDS ORDERED: Magnesium Sulfate 2 GM in D5% in Water 100 ML IVPB ONE (14:02)
--- NOTE | 2017-06-08 14:11 | Internal Med Progress Note ---
Date of Encounter: 06/08/17 Time of Encounter: 14:09 - Assessment and plan (1) Acute kidney injury Current Visit: Yes Status: Acute Assessment and plan: Improved with IV hdyration KEAGAN mostly pre renal due to severe hypovolemia with dehydration, poor PO intake , and high out put through ileosotomy Encourage more PO intake d/c IVF y/d (2) Electrolyte abnormality Current Visit: Yes Status: Acute Assessment and plan: Due to high out put through ileostomy cont close monitoring cont replacing Mg (3) Severe dehydration Current Visit: Yes Status: Acute Assessment and plan: resolved. (4) Wound dehiscence Current Visit: Yes Status: Acute Assessment and plan: Wound care consulted cont local wound care pt's regular surgeon does aware of this she need to f/u with surgeon closely as an out pt (5) Colorectal cancer Current Visit: Yes Status: Acute Assessment and plan: Need to f/u with colorectal surgeon as an out pt (6) Hypertension Current Visit: Yes Status: Acute Assessment and plan: stable with home meds Qualifiers: Hypertension type: essential hypertension Qualified Code(s): I10 - Essential (primary) hypertension (7) Type 2 diabetes mellitus Current Visit: Yes Status: Acute Assessment and plan: Cont ISS.. Qualifiers: Diabetes mellitus complication status: without complication Diabetes mellitus custodial insulin use: without equipment operator intermodal yard use Qualified Code(s): E11.9 - Type 2 diabetes mellitus without complications (8) DVT prophylaxis Current Visit: Yes Status: Acute Assessment and plan: Plan SCDs and heparin (9) Physical deconditioning Current Visit: Yes Status: Acute Assessment and plan: PT / OT eval May need to go back to [facility] waiting on authorization [employer] / [employer] working on it - Subjective Interval history: This is a 61 y/o F with known past medical history of colon cancer for which patient recently had a colorectal surgery with ileostomy at the [facility]. Now she presented to our ER from a [facility] with generalized weakness and lethargic. Session also happen to have high output with ileostomy and patient was looking very dehydrated. Apparently patient had severe acute kidney injury due to dehydration which resolved with IV hydration here. Currently patient is alert,awake and oriented to time place person. Patient denied any chest pain or shortness of breath or abdominal pain - Constitutional Vitals: Temp Pulse Resp BP Pulse Ox 98.8 F 74 15 98/62 94 06/08/17 11:41 06/08/17 11:41 06/08/17 11:41 06/08/17 11:41 06/08/17 11:41 General appearance: Present: A&O X 3, no acute distress, answers questions appropriately - Respiratory Respiratory exam: Present: decreased breath sounds, CTAB. Absent: accessory muscle use, rales, rhonchi, wheezes - Cardiovascular Cardiovascular exam: Present: RRR, +S1, +S2. Absent: diastolic murmur, gallop, rubs, systolic murmur - GI/Abdominal GI/Abdominal exam: Present: soft. Absent: guarding, rebound, rigid Additional comments: Ileostomy bag + Open healing wound with some dehiscence noticed over recent surgical incision area. - Extremities Exam Extremities exam: Absent: pedal edema, tenderness - Psychiatric Psychiatric exam: Present: normal affect, normal mood Internal Medicine: Result - Labs CBC & Chem 7: 06/08/17 04:26 06/08/17 04:26 Labs: Short CBC 06/08/17 Range/Units 04:26 WBC 5.4 (4.3-11.1) K/mcL Hgb 8.1 L (11.5-15.4) g/dL Hct 24.2 L (35.3-44.9) % Plt Count 320 (140-400) K/mcL Neutrophils # 3.4 (1.6-8.9) K/mcL BMP 06/08/17 04:26 Sodium 140 Potassium 4.1 Chloride 105 Carbon Dioxide 27 BUN 9 Creatinine 0.77 Glucose 106 H Calcium 9.4 Liver Function 06/08/17 Range/Units 04:26 Total Bilirubin < 0.1 L (0.2-1.2) mg/dL AST 9 (5-34) Units/L ALT 8 (0-55) Units/L Alkaline Phosphatase 59 (38-126) Units/L Albumin 2.5 L (3.5-5.0) g/dL - VTE Documentation of Mechanical Device: Intermittent pneumatic compression device Consult Discharge Plan - Plan Referrals: NO,PCP [Primary Care Provider] -
[2017-06-08] MEDS: *HR* HYDROmorphone (PF) 1 MG/ML SYRINGE IVP PRN (21:48)
[2017-06-09 07:02] LABS: Basophils # 0.1 K/mcL (0.0-0.2); Basophils % 0.7 %; Eosinophils # 0.4 K/mcL (0.0-0.6); Eosinophils % 5.7 %; Hematocrit 26.1 % (35.3-44.9); Hemoglobin 8.6 g/dL (11.5-15.4); Immature Granulocytes % 1.5 % (0-4); Lymphocytes % 13.9 %; Mean Corpuscular Hemoglobin 28.1 pg (28.0-33.3); Mean Corpuscular Volume 85.3 fL (83.0-100.0); Mean Platelet Volume 9.9 fL (9.4-12.4); Monocytes # 0.7 K/mcL (0.0-1.3); Monocytes % 9.3 %; Neutrophils # 5.1 K/mcL (1.6-8.9); Platelet Count 348 K/mcL (140-400); Red Blood Count 3.06 M/mcL (3.82-4.97); Red Cell Distribution Width 13.2 % (11.5-14.5); Segmented Neutrophils % 68.9 %
[2017-06-09 07:17] LABS: Alanine Aminotransferase 9 Units/L (0-55); Albumin 2.7 g/dL (3.5-5.0); Albumin/Globulin Ratio 0.6 (1.1-2.2); Alkaline Phosphatase 62 Units/L (38-126); Aspartate Amino Transferase 11 Units/L (5-34); BUN/Creatinine Ratio 15 (6-26); Bilirubin,Total 0.3 mg/dL (0.2-1.2); Blood Urea Nitrogen 12 mg/dL (7-20); Calcium 9.7 mg/dL (8.6-10.8); Carbon Dioxide 27 mEq/L (19-29); Chloride 105 mEq/L (98-109); Globulin 4.5 g/dL (2.4-3.5); Glucose 121 mg/dL (70-99); Osmolality,Calculated 287 (280-300); Potassium 4.7 mEq/L (3.5-4.5); Total Protein 7.2 g/dL (6.0-8.3); eGFR For African Americans > 60 (> 60); eGFR For Non-African Americans > 60 (> 60)
[2017-06-09 07:20] LABS: Sodium 138 mEq/L (136-145)
[2017-06-09] MEDS: Insulin LISPRO 300 UNITS/3 ML VIAL SQ SCH ×4 (08:02→22:06)
[2017-06-09] MEDS ORDERED: *HR* OxyCODONE/APAP 5/325 TABLET PO PRN (13:08)
--- NOTE | 2017-06-09 13:12 | Internal Med Progress Note ---
Date of Encounter: 06/09/17 Time of Encounter: 13:08 - Assessment and plan (1) Acute kidney injury Current Visit: Yes Status: Acute Assessment and plan: Resolved with IV hdyration KEAGAN mostly pre renal due to severe hypovolemia with dehydration, poor PO intake , and high out put through ileosotomy Encourage more PO intake Off he IVF (2) Electrolyte abnormality Current Visit: Yes Status: Acute Assessment and plan: Due to high out put through ileostomy cont close monitoring (3) Wound dehiscence Current Visit: Yes Status: Acute Assessment and plan: Wound care is on board cont local wound care Placed a call to pt's regular surgeon Dr. Raúl Castellano from [facility] to discuss about possible wound vac bag (4) Colorectal cancer Current Visit: Yes Status: Acute Assessment and plan: Need to f/u with colorectal surgeon as an out pt (5) Hypertension Current Visit: Yes Status: Acute Assessment and plan: stable with home meds Qualifiers: Hypertension type: essential hypertension Qualified Code(s): I10 - Essential (primary) hypertension (6) Type 2 diabetes mellitus Current Visit: Yes Status: Acute Assessment and plan: Cont ISS.. Qualifiers: Diabetes mellitus complication status: without complication Diabetes mellitus superintendent terminal insulin use: without superintendent terminal use Qualified Code(s): E11.9 - Type 2 diabetes mellitus without complications (7) Iron deficiency anemia Current Visit: Yes Status: Chronic Assessment and plan: started on Iron supplements Qualifiers: Qualified Code(s): D50.9 - Iron deficiency anemia, unspecified (8) Urinary tract infection Current Visit: Yes Status: Acute Assessment and plan: UTI with enterococcus fecalis finished 7 days of Abx by today Qualifiers: Urinary tract infection type: acute cystitis Hematuria presence: with hematuria Qualified Code(s): N30.01 - Acute cystitis with hematuria (9) DVT prophylaxis Current Visit: Yes Status: Acute Assessment and plan: Plan SCDs and heparin (10) Physical deconditioning Current Visit: Yes Status: Acute Assessment and plan: PT / OT eval May need to go back to ECF waiting on authorization [employer] / TWAN working on it - Subjective Interval history: This is a 61 y/o F with known past medical history of colon cancer for which patient recently had a colorectal surgery with ileostomy at the [facility]. Now she presented to our ER from a intermediate with generalized weakness and lethargic. Session also happen to have high output with ileostomy and patient was looking very dehydrated. Apparently patient had severe acute kidney injury due to dehydration which resolved with IV hydration here. Currently patient is alert,awake and oriented to time place person. Patient denied any chest pain or shortness of breath or abdominal pain. No new complaints - Constitutional Vitals: Temp Pulse Resp BP Pulse Ox 98.1 F 81 19 106/70 97 06/09/17 11:03 06/09/17 11:03 06/09/17 11:03 06/09/17 11:03 06/09/17 11:03 General appearance: Present: A&O X 3, no acute distress, answers questions appropriately - Respiratory Respiratory exam: Present: CTAB. Absent: accessory muscle use, rales, rhonchi, wheezes - Cardiovascular Cardiovascular exam: Present: RRR, +S1, +S2. Absent: diastolic murmur, gallop, rubs, systolic murmur - GI/Abdominal GI/Abdominal exam: Present: normal bowel sounds, soft Additional comments: Chronic open wound lower abdomen from recent surgery. Mild serous discharge noticed. - Extremities Exam Extremities exam: Absent: calf tenderness, cyanotic, pedal edema Internal Medicine: Result - Labs CBC & Chem 7: 06/09/17 05:54 06/09/17 05:54 Labs: Short CBC 06/09/17 Range/Units 05:54 WBC 7.3 (4.3-11.1) K/mcL Hgb 8.6 L (11.5-15.4) g/dL Hct 26.1 L (35.3-44.9) % Plt Count 348 (140-400) K/mcL Neutrophils # 5.1 (1.6-8.9) K/mcL BMP 06/09/17 05:54 Sodium 138 Potassium 4.7 H Chloride 105 Carbon Dioxide 27 BUN 12 Creatinine 0.79 Glucose 121 H Calcium 9.7 Liver Function 06/09/17 Range/Units 05:54 Total Bilirubin 0.3 (0.2-1.2) mg/dL AST 11 (5-34) Units/L ALT 9 (0-55) Units/L Alkaline Phosphatase 62 (38-126) Units/L Albumin 2.7 L (3.5-5.0) g/dL - VTE Documentation of Mechanical Device: Intermittent pneumatic compression device Consult Discharge Plan - Plan Referrals: NO,PCP [Primary Care Provider] -
[2017-06-09] MEDS: levoFLOXacin 500 MG TABLET PO SCH (13:46)
[2017-06-10 04:43] LABS: Basophils % 0.5 %; Eosinophils # 0.4 K/mcL (0.0-0.6); Hematocrit 25.7 % (35.3-44.9); Hemoglobin 8.5 g/dL (11.5-15.4); Immature Granulocytes % 1.4 % (0-4); Lymphocytes % 14.3 %; Mean Corpuscular HGB Conc 33.1 g/dL (31.6-35.5); Mean Corpuscular Volume 84.5 fL (83.0-100.0); Mean Platelet Volume 9.7 fL (9.4-12.4); Monocytes # 0.6 K/mcL (0.0-1.3); Monocytes % 8.9 %; Neutrophils # 4.6 K/mcL (1.6-8.9); Platelet Count 316 K/mcL (140-400); Red Blood Count 3.04 M/mcL (3.82-4.97); Red Cell Distribution Width 13.2 % (11.5-14.5); Segmented Neutrophils % 68.9 %
[2017-06-10 04:59] LABS: Alanine Aminotransferase 8 Units/L (0-55); Albumin 2.6 g/dL (3.5-5.0); Albumin/Globulin Ratio 0.6 (1.1-2.2); Alkaline Phosphatase 61 Units/L (38-126); Aspartate Amino Transferase 13 Units/L (5-34); BUN/Creatinine Ratio 12 (6-26); Bilirubin,Total 0.4 mg/dL (0.2-1.2); Blood Urea Nitrogen 10 mg/dL (7-20); Calcium 9.9 mg/dL (8.6-10.8); Carbon Dioxide 29 mEq/L (19-29); Chloride 105 mEq/L (98-109); Globulin 4.5 g/dL (2.4-3.5); Glucose 111 mg/dL (70-99); Osmolality,Calculated 288 (280-300); Sodium 139 mEq/L (136-145); Total Protein 7.1 g/dL (6.0-8.3); eGFR For African Americans > 60 (> 60); eGFR For Non-African Americans > 60 (> 60)
[2017-06-10 05:22] LABS: Potassium 4.8 mEq/L (3.5-4.5)
[2017-06-10] MEDS: Insulin LISPRO 300 UNITS/3 ML VIAL SQ SCH ×2 (07:34→11:54)
[2017-06-10 10:48] VITALS: BP 109/70
--- NOTE | 2017-06-10 11:54 | Discharge Summary ---
Date of Encounter: 06/10/17 Time of Encounter: 11:46 - Discharge Diagnosis (1) Acute kidney injury Priority: Primary Status: Acute Comments: resolved (2) Urinary tract infection Priority: Primary Status: Acute Comments: resolved. finished full course of abx Qualifiers: Urinary tract infection type: acute cystitis Hematuria presence: with hematuria Qualified Code(s): N30.01 - Acute cystitis with hematuria (3) Electrolyte abnormality Priority: Primary Status: Acute (4) Wound dehiscence Priority: Secondary Status: Acute (5) Colorectal cancer Priority: Secondary Status: Acute (6) Hypertension Priority: Secondary Status: Acute Qualifiers: Hypertension type: essential hypertension Qualified Code(s): I10 - Essential (primary) hypertension (7) Type 2 diabetes mellitus Priority: Secondary Status: Acute Qualifiers: Diabetes mellitus complication status: without complication Diabetes mellitus nursing home insulin use: without superintendent terminal use Qualified Code(s): E11.9 - Type 2 diabetes mellitus without complications (8) Iron deficiency anemia Priority: Secondary Status: Chronic Qualifiers: Qualified Code(s): D50.9 - Iron deficiency anemia, unspecified (9) Physical deconditioning Priority: Secondary Status: Acute - Discharge Medications Prescriptions: Oxycodone HCl/Acetaminophen [Percocet 5-325 mg Tablet] 1 each PO Q6H PRN #15 PRN Reason: Moderate Pain Tramadol HCl [Ultram] 50 mg PO Q6H PRN #15 PRN Reason: Mild To Moderate Pain Home Medications: Acetaminophen [Tylenol] 325 mg PO Q6HR PRN 06/04/17 [History] Aspirin 81 mg PO DAILY 06/05/17 [History] Glimepiride [Amaryl] 1 mg PO DAILY 06/05/17 [History] Levothyroxine [Synthroid] 100 mcg PO 0630 06/05/17 [History] Lisinopril [Zestril] 10 mg PO DAILY 06/05/17 [History] Metformin HCl [Glucophage] 1,000 mg PO DAILY 06/05/17 [History] hydroCHLOROthiazide [Hydrochlorothiazide] 25 mg PO DAILY 06/05/17 [History] Ferrous Sulfate 325 mg PO BIDWM tab 06/10/17 [Rx] Oxycodone HCl/Acetaminophen [Percocet 5-325 mg Tablet] 1 each PO Q6H PRN #15 [Rx] Tramadol HCl [Ultram] 50 mg PO Q6H PRN #15 06/10/17 [Rx] Allergies/Adverse Reactions: Allergies No Known Allergies Allergy (Verified 06/04/17 16:22) Date of admission: 06/04/17 20:13 Primary care physician: PCP NO Consults: 06/04/17 21:13 Consult to Wound Care [CONS] Routine Reason for Consult: Open surgical wound Call Completed: No 06/04/17 21:29 Consult to Nephrology [CONS] Routine Consulting Provider: Kidney Winnie/TRAVON/BEN/SHANNEN Reason for Consult: ARF Time Notified: 21:30 Call Completed: Yes 06/04/17 22:28 Consult to Furniture Upholstery Mechanic [CONS] Routine Reason for SW Consult: aJsper Chávez resident 06/05/17 02:26 Consult to Nutrition [CONS] Routine Comment: Consulting Provider: NUTRITION Reason for Dietary Consult: SHIRA Mathew 06/05/17 19:20 Consult to Occupational Therapy [CONS] Routine Comment: Evaluate, develop and implement POC Reason for Consult: REHAB Consult to Physical Therapy [CONS] Routine Comment: Evaluate, develop and implement POC Reason for Consult: REHAB Anticipated date of discharge: 06/10/17 - Patient Status Disposition: Transfer SNF Condition: Fair Overall status at discharge: patient is back to baseline - Discharge Instructions Follow Up With: PRINCESS,PCP [Primary Care Provider] - Raúl Castellano MD [Non-Partnered Physician] - 06/22/17 10:45 am ([facility].) - Diet and Activity Activity: increase activity as tolerated Diet: advance to your usual diet Hospital course: Ms. Tinoco is a 61 year old female with history of recent colon cancer resection, diabetes, hypertension presents with abnormal labs. Patient states that she had her labs drawn at the intermediate and then was told that she needed to come to the hospital because her kidney function was off. At this time the patient herself has no complaints. She states she has not been eating well and has not drank much in the last several days. She reports minimal urine output and has not urinated in the last 2 days. Patient had colorectal surgery resection performed at [facility] on 05/03/[address] Raúl Castellano. Review of records revealed that patient had postsurgical wound dehiscence and was then treated with a wound VAC. Open surgical wound remains present. Patient was admitted in the hospital and started her on aggressive IV hydration as well as electrolyte replacement. Her symptoms started improving and her kidney failure resolved on the next day itself. Regarding her chronic open surgical wound with dehiscence, we continued local wound care here by our local wound care team. I did talk to the surgeon Dr. Raúl Castellano from [facility] , who recommend to talk to the intermediate staff and put her back on wound vac as early as possible , also recommend to follow up with him as outpatient in one week. Our nursing staff did communicated with the patient's intermediate staff and requested to put the patient back on wound vac as soon as possible. Also we made an appointment with surgeon Dr. Raúl Castellano. Patient also happened to have urinary infection with enterococci faecalis, which was treated with a full course of antibiotics here. Patient is getting discharged to the intermediate today in a stable condition - Time Spent with Patient Total time spent providing and/or coordinating discharge services: Greater than 30 minutes (Spent 45 minutes on this patient's discharge summary due to complex medical problems and patient needed a lot of education regarding discharge instructions) - Constitutional Vitals: Temp Pulse Resp BP Pulse Ox 98.5 F 76 15 109/70 97 06/10/17 10:47 06/10/17 10:47 06/10/17 10:47 06/10/17 10:47 06/10/17 10:47 General appearance: Present: A&O X 3, no acute distress, answers questions appropriately - Respiratory Respiratory exam: Present: CTAB. Absent: accessory muscle use, rales, rhonchi, wheezes - Cardiovascular Cardiovascular exam: Present: RRR, +S1, +S2. Absent: diastolic murmur, gallop, rubs, systolic murmur - GI/Abdominal GI/Abdominal exam: Present: soft. Absent: tenderness Additional comments: Open surgical wound with healing granuloma tissue noticed. No foul odor discharge noticed. No signs of infection noticed - Psychiatric Psychiatric exam: Present: normal affect, normal mood - VTE Documentation of Mechanical Device: Intermittent pneumatic compression device
--- NOTE | 2017-06-10 14:13 | Physician Discharge Referral ---
ExtendedCare Referral Info Transfer To: ECF Provider in Charge after Transfer: PCP Institutional Level of Care: Skilled (Please put the wound vac back right away.. also f/u with surgery Dr. Raúl Castellano) - Diagnosis (1) Acute kidney injury Status: Acute (2) Urinary tract infection Status: Acute (3) Electrolyte abnormality Status: Acute (4) Wound dehiscence Status: Acute (5) Colorectal cancer Status: Acute (6) Hypertension Status: Acute (7) Type 2 diabetes mellitus Status: Acute (8) Iron deficiency anemia Status: Chronic (9) Physical deconditioning Status: Acute - Transfer Medications Prescriptions: Oxycodone HCl/Acetaminophen [Percocet 5-325 mg Tablet] 1 each PO Q6H PRN #15 PRN Reason: Moderate Pain Tramadol HCl [Ultram] 50 mg PO Q6H PRN #15 PRN Reason: Mild To Moderate Pain Home Medications: Acetaminophen [Tylenol] 325 mg PO Q6HR PRN 06/04/17 [History] Aspirin 81 mg PO DAILY 06/05/17 [History] Glimepiride [Amaryl] 1 mg PO DAILY 06/05/17 [History] Levothyroxine [Synthroid] 100 mcg PO 0630 06/05/17 [History] Lisinopril [Zestril] 10 mg PO DAILY 06/05/17 [History] Metformin HCl [Glucophage] 1,000 mg PO DAILY 06/05/17 [History] hydroCHLOROthiazide [Hydrochlorothiazide] 25 mg PO DAILY 06/05/17 [History] Ferrous Sulfate 325 mg PO BIDWM tab 06/10/17 [Rx] Oxycodone HCl/Acetaminophen [Percocet 5-325 mg Tablet] 1 each PO Q6H PRN #15 [Rx] Tramadol HCl [Ultram] 50 mg PO Q6H PRN #15 06/10/17 [Rx] Allergies/Adverse Reactions: Allergies No Known Allergies Allergy (Verified 06/04/17 16:22) - Respiratory Orders Smoking Cessation: Smoking cessation has been advised. For more information, call the [place] Tobacco Quit Line at 2-655-XQLW-NOW. CERTIFICATION: I certify that the transfer of the above named patient to an Extended Care Facility is necessary for the continuing treatment of the diagnosis listed. The above information is true and accurate reflection of patient's current condition. Confidential - Redisclosure prohibited without a patient's written consent.
== END 2017-06-10 16:18 | DRG 469 ==
LOC: EMEROO 14:52 → 2ANU 20:13 → 2NNU 20:32 → 3ANU 06-06 13:14
PROVIDERS: ADMIT Internal Medicine; ATTEND Internal Medicine